=== PATIENT | female | born 1990 | race Two or more races ===

== ENCOUNTER 2017-03-21 13:31 | Emergency (ER) | payer MEDICAID ==
[2017-03-21 13:38] VITALS: BP 89/54; PULSE 86; RESP 16; TEMP 98.1; O2SAT 97
== END 2017-03-21 14:18 | disposition left against medical advice (07) ==
DX: Z53.21 Procedure and treatment not carried out due to patient leaving prior to being seen by health care provider (principal)

== ENCOUNTER 2017-03-21 14:39 | Emergency (ER) | payer MEDICAID ==
[2017-03-21 15:00] VITALS: TEMP 98.1
--- NOTE | 2017-03-21 15:17 | EDPHY ---
H & P Time Seen by Provider: 03/21/17 15:05 HPI/ROS: CHIEF COMPLAINT: Laceration left hand HISTORY OF PRESENT ILLNESS: 26-year-old female left hand dominant with out-of- date tetanus sustained a laceration to her left hand in the web spacing 1st and 2nd digits when she was opening a gift this morning and the hard plastic lacerated her hand. No glass or fractured foreign body. No paresthesia. No sensory or motor deficit. PHYSICAL EXAM (Prior to examination, patient consented to physical exam, hands were washed and my usual and customary physical exam procedures followed) 1) GENERAL: Well-developed, well-nourished, alert and oriented. Appears to be in no acute distress. 2) HEAD: Normocephalic 3) HEENT: sclera anicteric 4) LUNGS: Breathing comfortably. 5) SKIN: The webspace be 20 in the 1st and 2nd digit on the left hand the patient has a 2.5 cm well-demarcated laceration. 6) MUSCULOSKELETAL: Abduction adduction flexion extension intact 7) NEUROLOGIC: Full sensation two-point discrimination intact distally Smoking Status: Current every day smoker Constitutional: Initial Vital Signs Temperature (C) 36.7 C 03/21/17 14:57 Heart Rate 68 03/21/17 14:57 Respiratory Rate 18 03/21/17 14:57 Blood Pressure 124/47 H 03/21/17 14:57 O2 Sat (%) 98 03/21/17 14:57 O2 Delivery Mode Room Air Allergies/Adverse Reactions: acetaminophen [From Vicodin] Allergy (Verified 03/21/17 15:00) hydrocodone [From Vicodin] Allergy (Verified 03/21/17 15:00) Home Medications: Medication Instructions Recorded NK [No Known Home Meds] 09/09/15 MDM/Departure - MDM Procedures: Procedure: Laceration repair. I explained the indications, risks and benefits for both laceration repair and anesthetic administration. Verbal consent was obtained from the patient . The laceration on the location was anesthetized using 0.5% bupivicaine without epinephrine. After anesthetic administered the patient was observed for a period of time and had no apparent adverse effects. The wound was cleaned, prepped, draped in normal sterile fashion and explored to its base. No foreign body seen, no foreign bodies palpated. No tendon injury was identified. The wound was repaired with 2 subcutaneous 5 0 Vicryl sutures and 5 simple interrupted 5 O Prolene sutures. The wound repair was complex The procedure was performed by myself. Patient has been informed that scarring will occur, although efforts have been made to minimize this. Procedure: Splint A Velcro thumb spica splint was applied by ER donor center technician to immobilize the area and decreased stress on the laceration site. After application of the splint I returned and re-examined the patient. The splint was adequately immobilizing the joint and distal to the splint the patient's circulation and sensation were intact. ED Course/Re-evaluation: Care of patient under supervision of secondary supervising physician Dr Jonas Pope. - Depart Disposition: Home, Routine, Self-Care Clinical Impression: Laceration of left hand Qualifiers: Encounter type: initial encounter Foreign body presence: without foreign body Qualified Code(s): S61.412A - Laceration without foreign body of left hand, initial encounter Condition: Good Instructions: Care For Your Stitches (ED), Laceration (ED) Additional Instructions: Return to the ER if you develop redness, swelling, discharge, warmth to the wound, red streaks going up your arm, or any other symptoms that concern you. Referrals: Return, to the ER in 10 days for suture removal [Other] - 03/31/17
[2017-03-21] MEDS ORDERED: TDAP ADULT 0.5 ML INJ (BOOSTRIX) IM ONE (15:36)
[2017-03-21 15:59] VITALS: BP 119/61; PULSE 80; RESP 14; O2SAT 96
== END 2017-03-21 15:58 | disposition home or self-care (01) ==
PROC: 0HQGXZZ Repair Left Hand Skin, External Approach (ICD-10-PCS; principal; 2017-03-21)
DX: S61.412A Laceration without foreign body of left hand, initial encounter (principal); F17.200 Nicotine dependence, unspecified, uncomplicated; Z23 Encounter for immunization; W26.8XXA Contact with other sharp object(s), not elsewhere classified, initial encounter
CPT/HCPCS: L3807